=== PATIENT | female | born 1965 | race Two or more races ===

== ENCOUNTER 2020-02-29 14:59 | Emergency (ER) | payer SELFPAY ==
[~2020-02-29] VITALS: Ht 154.9 cm; Wt 61.2 kg
[2020-02-29 15:07] VITALS: BP 142/75
== END 2020-02-29 17:27 | disposition home or self-care (01) ==
LOC: ER 14:59
DX: R05 Cough (principal); E11.9 Type 2 diabetes mellitus without complications; I10 Essential (primary) hypertension
CPT/HCPCS: 71046